=== PATIENT | female | born 1980 | race Caucasian/White ===

== ENCOUNTER 2021-03-03 20:53 | Emergency (ER) | payer SELFPAY ==
[~2021-03-03] VITALS: Ht 160 cm; Wt 100.0 kg
[2021-03-03] MEDS ORDERED: ACETAMINOPHEN 500MG TABLET PO ONE (22:30)
[2021-03-03 23:53] VITALS: BP 133/74
== END 2021-03-03 23:57 | disposition home or self-care (01) ==
LOC: ER 20:53
DX: R05.9 Cough, unspecified (principal); J45.909 Unspecified asthma, uncomplicated; Z20.822 Contact with and (suspected) exposure to COVID-19; Z98.890 Other specified postprocedural states
CPT/HCPCS: 87426; 99283